=== PATIENT | male | born 1950 | race Caucasian/White ===

== ENCOUNTER 2020-01-31 15:32 | Emergency (ER) | payer MEDICARE, OTHER ==
[~2020-01-31] VITALS: Ht 170.2 cm; Wt 95.6 kg
--- NOTE | 2020-01-31 15:48 | NUR ---
EKG IN TRIAGE BY CHRISTOPHER TECH
--- NOTE | 2020-01-31 17:01 | NUR ---
PT WITH LEFT BARTLETT REDNESS, WARMTH, SWELLING NO OPEN WOUNDS. CARDIAC HX.
[2020-01-31 17:50] VITALS: BP 132/76
== END 2020-01-31 18:05 | disposition home or self-care (01) ==
LOC: ED 17:20
DX: L03.116 Cellulitis of left lower limb (principal); M25.562 Pain in left knee; Z95.0 Presence of cardiac pacemaker
CPT/HCPCS: 93005; 99284

== ENCOUNTER 2020-02-04 09:04 | Outpatient (CLI) | payer MEDICARE, OTHER | END 2020-02-04 23:59 | disposition home or self-care (01) | LOC: RAD 09:04 → EDSTATUS 09:45 → RAD 23:59 | PROVIDERS: ATTEND Orthopaedic Surgery | DX: S46.111A Strain of muscle, fascia and tendon of long head of biceps, right arm, initial encounter (principal); M19.011 Primary osteoarthritis, right shoulder; M75.51 Bursitis of right shoulder; X58.XXXA Exposure to other specified factors, initial encounter; Y93.89 Activity, other specified; Y92.89 Other specified places as the place of occurrence of the external cause; Y99.8 Other external cause status ==